=== PATIENT | female | born 1975 | race Two or more races ===

== ENCOUNTER 2019-04-12 18:28 | Emergency (ER) | payer OTHER ==
[~2019-04-12] VITALS: Ht 157.5 cm; Wt 109.7 kg
[2019-04-12 18:34] VITALS: BP 148/73
== END 2019-04-12 23:00 | disposition left against medical advice (07) ==
LOC: ER 18:28
DX: R51 Headache (principal); Z53.21 Procedure and treatment not carried out due to patient leaving prior to being seen by health care provider